=== PATIENT | male | born 1950 | race Caucasian/White ===

== ENCOUNTER 2019-04-21 10:40 | Outpatient (CLI) | payer OTHER | END 2019-04-21 15:00 | disposition home or self-care (01) | LOC: LAB 10:40 | DX: R97.20 Elevated prostate specific antigen [PSA] (principal); B96.29 Other Escherichia coli [E. coli] as the cause of diseases classified elsewhere ==

== ENCOUNTER 2019-05-12 07:07 | Outpatient (CLI) | payer OTHER | END 2019-05-12 07:13 | disposition home or self-care (01) | LOC: SONOGRAMA 07:07 | DX: C61 Malignant neoplasm of prostate (principal); R97.20 Elevated prostate specific antigen [PSA] ==